=== PATIENT | female | born 1985 ===

== ENCOUNTER 2018-04-30 09:34 | Emergency (ER) | payer OTHER ==
[2018-04-30 09:38] VITALS: BMI 22.6
--- NOTE | 2018-04-30 10:15 | C.PDOC ---
History Of Present Illness 33yo female, comes to ER stating for the past 1 week, she has a headache with associated nausea. She also reports feeling sleepy, and states her abdomen feels "swollen and sore." She reports a prior episode in the past and was told it was due to "high sugar." Patient denies any history of diabetes as well. She states her LMP was on 04/12 and her menstrual cycle is regular and normal. Otherwise, patient denies any fever, chills, chest pain, vomiting, diarrhea and offers no additional medical complaints. Time Seen by Provider: 04/30/18 09:49 Chief Complaint (Nursing): Dizziness/Lightheaded History Per: Patient History/Exam Limitations: no limitations Onset/Duration Of Symptoms: Persistent Current Symptoms Are (Timing): Still Present Past Medical History Reviewed: Historical Data, Nursing Documentation, Vital Signs Vital Signs: Last Vital Signs Temp 98.7 F 04/30/18 12:28 Pulse 82 04/30/18 15:46 Resp 16 04/30/18 15:46 BP 106/76 04/30/18 15:46 Pulse Ox 100 04/30/18 15:32 - Medical History PMH: No Chronic Diseases Denies: Diabetes Surgical History: No Surg Hx Family History: States: No Known Family Hx - Social History Hx Alcohol Use: No Hx Substance Use: No - Immunization History Hx Tetanus Toxoid Vaccination: No Hx Influenza Vaccination: No Hx Pneumococcal Vaccination: No Review Of Systems Except As Marked, All Systems Reviewed And Found Negative. Constitutional: Positive for: Weakness. Negative for: Fever, Chills Cardiovascular: Negative for: Chest Pain Respiratory: Negative for: Shortness of Breath Gastrointestinal: Positive for: Nausea, Abdominal Pain ("swelling and soreness") . Negative for: Vomiting, Diarrhea, Constipation Neurological: Positive for: Headache Physical Exam - Physical Exam Appears: Non-toxic, No Acute Distress Skin: Warm, Dry Head: Normacephalic Eye(s): bilateral: Normal Inspection Neck: Normal ROM, Supple Chest: Symmetrical Cardiovascular: Rhythm Regular Respiratory: Normal Breath Sounds Gastrointestinal/Abdominal: Soft, Tenderness (suprapubic tenderness), No Mass, No Distention, No Guarding, No Rebound Back: Normal Inspection, No CVA Tenderness Extremity: Normal ROM, No Pedal Edema Neurological/Psych: Oriented x3, Normal Speech, Normal Cognition, Normal Motor, Normal Sensation Gait: Steady ED Course And Treatment - Laboratory Results Result Diagrams: 04/30/18 10:42 04/30/18 10:42 O2 Sat by Pulse Oximetry: 100 (RA) Pulse Ox Interpretation: Normal - CT Scan/US US Abd/Pelvis/Transvag Other Rad Studies (CT/US): Radiology Report Reviewed CT/US Interpretation: Findings: Uterus: 9.8 x 5.1 x 6.2 centimeters. Heterogeneous echotexture. Anteverted. Endometrium measures 5 millimeters, within normal limits. Cervix measures 3.6 centimeters. Small amount of free fluid within the pelvic cul-de-sac. Right ovary: 3.0 x 2.4 x 2.7 centimeters. Normal flow. Left ovary: 4.2 x 3.3 x 5.2 centimeters. Normal flow. Hypoechoic cyst measuring 3.5 x 3.0 x 3.4 centimeters. Trace free fluid adjacent to the left adnexum. Impression: 3.5 centimeter left ovarian cyst. Trace free fluid adjacent to the left adnexa. Small amount of free fluid in the posterior pelvic cul-de-sac. Progress Note: Labs, UA and urine-HCG ordered. Patient given IV fluids. On re- evaluation patient feels better, no longer c/o abdominal pain/headache/nausea. patient is stable to be d/c home with PMD and OBGYN follow up. Disposition - Disposition Disposition: HOME/ ROUTINE Disposition Time: 15:22 Condition: STABLE Additional Instructions: Follow up with PMD and OBGYN within 1-2 days. Return to ED if feel worse. Prescriptions: Naproxen [Naprosyn] 1 tab PO BID PRN #25 tab PRN Reason: Pain Instructions: Ovarian Cysts Forms: [employer] ([place]i) Print Language: CHADIAN - Clinical Impression Clinical Impression: Ovarian cyst - PA / DIRECTOR OF COMPENSATION / Resident Statement MD/DO has reviewed & agrees with the documentation as recorded. - Scribe Statement The provider has reviewed the documentation as recorded by the Leydi Stevenson Provider Attestation: All medical record entries made by the Leydi were at my direction and personally dictated by me. I have reviewed the chart and agree that the record accurately reflects my personal performance of the history, physical exam, medical decision making, and the department course for this patient. I have also personally directed, reviewed, and agree with the discharge instructions and disposition.
[2018-04-30] MEDS ORDERED: Sodium Chloride 0.9% 1,000 ML IV STA (10:16)
[2018-04-30] MEDS ORDERED: Sodium Chloride 0.9% 1,000 ML ONE (10:26)
[2018-04-30 10:57] LABS: BASO % 0.7 % (0.0-2.0); EOS # 0.2 K/uL (0.0-0.7); EOS % 3.9 % (0.0-4.0); HCG,QUALITATIVE URINE NEGATIVE (NEGATIVE); LYMPH % 20.4 % (20.0-40.0); MEAN CELL VOLUME 85.9 fL (81.0-99.0); MEAN CORPUSCULAR HEMOGLOBIN 29.2 pg (27.0-31.0); MEAN PLATELET VOLUME 8.7 fL (7.2-11.7); MONO # 0.3 K/uL (0.0-0.8); NEUT # 3.4 K/uL (1.8-7.0); RBC 4.11 Mil/uL (3.80-5.20); RED CELL DISTRIBUTION WIDTH 13.5 % (11.5-14.5); WHITE BLOOD COUNT 4.9 K/uL (4.8-10.8)
[2018-04-30 11:02] LABS: SQUAMOUS EPITHIAL 2 /hpf (0-5); URINE BACTERIA RARE (<OCC); URINE BILIRUBIN NEGATIVE (NEGATIVE); URINE BLOOD NEGATIVE (NEGATIVE); URINE CLARITY Clear (Clear); URINE COLOR Straw (YELLOW); URINE GLUCOSE (UA) NORMAL (Normal); URINE LEUKOCYTE ESTERASE NEG Leu/uL (Negative); URINE PROTEIN NEGATIVE (NEGATIVE); URINE UROBILINOGEN NORMAL mg/dL (0.2-1.0)
[2018-04-30 11:09] LABS: ALB/GLOB RATIO 1.4 (1.0-2.1); ALT/SGPT 26 U/L (9-52); AST/SGOT 20 U/L (14-36); BLOOD UREA NITROGEN 7 mg/dL (7-17); CALCIUM 9.1 mg/dl (8.6-10.4); GFR AFRICAN-AMERICAN > 60; GFR NON-AFRICAN AMERICAN > 60
[2018-04-30 11:18] LABS: D DIMER < 200 ng/mlDDU (0-243); INR 1.1; PARTIAL THROMBOPLASTIN TIME 30 SECONDS (21-34); PROTHROMBIN TIME 11.5 SECONDS (9.7-12.2)
[2018-04-30 12:29] VITALS: TEMP 98.7
--- NOTE | 2018-04-30 14:38 | US ---
Pelvic ultrasound History: Pelvic pain. Comparison: None available. Technique: Real-time sonography was performed through the pelvis utilizing transabdominal and transvaginal techniques. Findings: Uterus: 9.8 x 5.1 x 6.2 centimeters. Heterogeneous echotexture. Anteverted. Endometrium measures 5 millimeters, within normal limits. Cervix measures 3.6 centimeters. Small amount of free fluid within the pelvic cul-de-sac. Right ovary: 3.0 x 2.4 x 2.7 centimeters. Normal flow. Left ovary: 4.2 x 3.3 x 5.2 centimeters. Normal flow. Hypoechoic cyst measuring 3.5 x 3.0 x 3.4 centimeters. Trace free fluid adjacent to the left adnexum. Impression: 3.5 centimeter left ovarian cyst. Trace free fluid adjacent to the left adnexa. Small amount of free fluid in the posterior pelvic cul-de-sac.
[2018-04-30 15:17] VITALS: O2SAT 100
[2018-04-30 15:46] VITALS: BP 106/76; PULSE 82; RESP 16
== END 2018-04-30 15:48 | disposition home or self-care (01) ==
LOC: C.ER 09:34
DX: N83.202 Unspecified ovarian cyst, left side (principal)
CPT/HCPCS: 76830; 76856; 80053; 81001; 84703; 85025; 85378; 85610; 85730; 96360; 99285; J7030